=== PATIENT | male | born 1975 | race Caucasian/White ===

== ENCOUNTER → 2021-03-07 13:43 | Outpatient (CLI) | payer BC, SELFPAY ==
--- NOTE | ~2021-03-07 | CT_ITS ---
EXAMINATION: CT abdomen pelvis wo con DATE: 03/07/2021 14:17 INDICATION: Right lower quadrant bulge. Evaluate for hernia. TECHNIQUE: Computed tomography (CT) of the abdomen and pelvis was performed without intravenous contr ast. The dose-length product was 1135.74 mGy-cm. Automated exposure control and iterative reconstruct ion technique were employed. COMPARISON: None. FINDINGS: Heart size is normal. No significant pleural or pericardial effusion. No significant vascul ar abnormality. Nonobstructive bowel gas pattern. The liver, spleen, pancreas, adrenal glands and kid neys are unremarkable. Gallbladder is present. There is a fat-containing left inguinal hernia. No abn ormal pelvic masses or fluid collections. Normal appendix. No free air or free fluid. No lymphadenopa thy. Moderate lumbar spondylosis. No lytic or blastic lesions are identified. IMPRESSION: 1. No acute abdominal abnormality. 2: Small fat-containing left inguinal hernia. Reviewed, dictated and finalized at location A.
== END ==
DX: R10.9 Unspecified abdominal pain (principal); K40.90 Unilateral inguinal hernia, without obstruction or gangrene, not specified as recurrent; M47.816 Spondylosis without myelopathy or radiculopathy, lumbar region
CPT/HCPCS: 74176

== ENCOUNTER → 2021-06-25 00:28 | Outpatient (CLI) | payer BC, SELFPAY ==
[2021-06-25 21:27] LABS: SARS-CoV-2 RNA PCR Negative
== END ==
PROVIDERS: PCP Family Medicine; Visit Provider Surgery
DX: Z01.812 Encounter for preprocedural laboratory examination (principal); Z20.822 Contact with and (suspected) exposure to COVID-19
CPT/HCPCS: C9803; U0003; U0005

== ENCOUNTER 2021-06-29 00:25 | Day surgery (SDC) | payer BC, SELFPAY ==
[2021-06-27 13:36] VITALS: BMI 47.9
--- NOTE | 2021-06-28 17:23 | WPDANESEPP ---
Anes - Eval Pre Procedure Procedure: Operation Date: 06/29/21 07:30 Proposed Procedures p Laparoscopic Bilateral Inguinal Hernia Repair with Mesh, Davinci Assisted - Omer Smith DO Date/Time: 06/28/21 17:23 Pre Op Diagnosis: Bilateral Inguinal Hernia Patient Data Age: 46 Gender: M Height: 1.8 m Weight: 155.9 kg Allergies Allergy/AdvReac Type Severity Reaction Status Date / Time No Known Allergies Allergy Verified 06/27/21 13:13 Home Medications Medication Instructions Recorded Confirmed Type testosterone cypionate 200 mg/mL See Rx Instructions .ROUTE .COMPLEX 03/22/21 06/27/21 History intramuscular oil magnesium 30 mg tablet 30 mg PO DAILY 05/11/21 06/27/21 History multivitamin 1 tablet PO DAILY 05/11/21 06/27/21 History omega-3 fatty acids 1,000 mg 1,000 mg PO DAILY 05/11/21 06/27/21 History capsule phytonadione (vitamin K1) 100 mcg 100 mcg PO DAILY 05/11/21 06/27/21 History tablet dextroamphetamine-amphetamine 20 20 mg PO BID #60 tablet 06/14/21 06/27/21 Rx mg tablet cholecalciferol (vitamin D3) 50 mcg PO DAILY 06/27/21 06/27/21 History [Vitamin D3] Patient hx anesthesia problems: none Family hx anesthesia problems: none [facility] Past Medical History Medical History (Updated 06/28/21 @ 17:00 by Gopi Robledo DO) ADHD, predominantly inattentive type Anxiety PONV (postoperative nausea and vomiting) Surgical History Surgical History H/O oral surgery H/O wrist surgery Family History Family History Father Cerebrovascular accident Hypertension Unknown Diabetes mellitus Cancer Social History Social History Social History: Caffeine use: coffee daily & Monster drink mixed with water Smoking status: Never smoker Alcohol intake: current Drinks per week: 8 Alcohol use details: mostly weekends Substance use: current Substance use type: marijuana Other substance usage details: eatables 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
[2021-06-29] VITALS (10 sets, daily range): BP systolic 127–149; BP diastolic 79–103; PULSE 60–94; RESP 14–20; TEMP 36.6; O2SAT 96–100
[2021-06-29] MEDS: LACTATED RINGERS 1,000 ML 30 ML IV CONT (06:56)
[2021-06-29] MEDS: ACETAMINOPHEN 500 MG TABLET 1000 MG PO (06:57)
[2021-06-29] MEDS: KETOROLAC 15 MG/ML VIAL (*BKC) IV PUSH (06:58)
--- NOTE | 2021-06-29 07:02 | WPDANESEFPP ---
Anes - Eval Final PreProcedure Day of Procedure 06/29/21 07:02 Patient weight: morbidly obese Heart: regular rate and rhythm Lungs: clear to auscultation Airway: Mallampati scale class II Neurological: alert and oriented Last oral intake: >/= 8 hours ASA classification: III Emergent: no Anesthetic plan: proceed Anesthesia type and monitoring: general ETT and standard monitoring Informed Consent: The patient's anesthetic plan and its attendant risks and benefits were discussed with the patient/family/POA. Questions were solicited and answers provided to the satisfaction of the patient/family/POA.
[2021-06-29] MEDS: SCOPOLAMINE 1.5 MG PATCH TRANSDERM (07:10)
--- NOTE | 2021-06-29 07:13 | WPDHPUPDATE1 ---
History and Physical Update Update Date/Time: 06/29/21 07:13 History and Physical has been reviewed, including an updated exam of the patient. There are NO changes in the patient's condition. Risks, benefits, and alternatives have been discussed and questions answered. Patient agrees to proceed with procedure.
--- NOTE | 2021-06-29 07:13 | PM.IMHP ---
H&P: HPI History of Present Illness Date/Time: 06/29/21 07:13 Chief Complaint: bilateral inguinal hernia Narrative: 46 yo man presents for bilateral inguinal hernia repair. He denies any changes since last seen in office. Review of Systems Review of Systems: All systems reviewed & are unremarkable except as noted in HPI and below Constitutional: Constitutional: Denies chills, Denies fever(s), Denies headache(s) and Denies weight loss Eyes: Eyes: Denies change in vision ENT: Denies dizziness, Denies headache(s), Denies neck mass and Denies throat swelling Cardiovascular: Cardiovascular: Denies chest pain, Denies lightheadedness and Denies dyspnea Respiratory: Respiratory: Denies cough, Denies dyspnea and Denies wheezing Gastrointestinal: Gastrointestinal: Denies abdominal pain, Denies change in bowel habits, Denies nausea and Denies vomiting Genitourinary: Genitourinary: Denies hematuria and Denies dysuria Musculoskeletal: Musculoskeletal: Reports as per HPI Integumentary/Breasts: Skin/Breast: Reports as per HPI Neurologic: Denies dizziness and Denies headache(s) Allergic/Immunologic: Allergic/Immunologic: Denies throat swelling and Denies wheezing [facility] Past Medical History Medical History (Updated 06/28/21 @ 17:00 by Gopi Robledo DO) ADHD, predominantly inattentive type Anxiety PONV (postoperative nausea and vomiting) Surgical History Surgical History H/O oral surgery H/O wrist surgery Family History Family History Father Cerebrovascular accident Hypertension Unknown Diabetes mellitus Cancer Social History Social History Social History: Caffeine use: coffee daily & Monster drink mixed with water Smoking status: Never smoker Alcohol intake: current Drinks per week: 8 Alcohol use details: mostly weekends Substance use: current Substance use type: marijuana Other substance usage details: eatables Living arrangements: with family 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[employer] Gender identity (if verbalized by the patient): Male Spiritual care concerns: No Meds Home Medications and Allergies Home Medications Medication Instructions Recorded Confirmed Type testosterone cypionate 200 mg/mL See Rx Instructions .ROUTE .COMPLEX 03/22/21 06/29/21 History intramuscular oil magnesium 30 mg tablet 30 mg PO DAILY 05/11/21 06/29/21 History multivitamin 1 tablet PO DAILY 05/11/21 06/29/21 History omega-3 fatty acids 1,000 mg 1,000 mg PO DAILY 05/11/21 06/29/21 History capsule phytonadione (vitamin K1) 100 mcg 100 mcg PO DAILY 05/11/21 06/29/21 History tablet dextroamphetamine-amphetamine 20 20 mg PO BID #60 tablet 06/14/21 06/29/21 Rx mg tablet cholecalciferol (vitamin D3) 50 mcg PO DAILY 06/27/21 06/29/21 History [Vitamin D3] Allergies Allergy/AdvReac Type Severity Reaction Status Date / Time No Known Allergies Allergy Verified 06/29/21 06:39 Vital Signs Vital Signs - 24 hr 06/29/21 06:24 Temperature 36.6 C Pulse Rate 73 Respiratory Rate 16 Blood Pressure 127/87 Pulse Oximetry 96 Exam Const: General: no acute distress and alert Orientation/consciousness: patient oriented x3 HENMT: Head: normocephalic and atraumatic Ears: hearing grossly normal bilaterally General nose exam: Normal nares present Mouth: Yes Normal oral and palatal mucosa present Eyes: Periorbital: periorbital findings normal Sclera: sclerae normal EOM: EOMs intact bilaterally Neck: Neck: normal visual inspection, no lymphadenopathy and trachea midline Chest: Chest palpation & inspection: normal inspection of the chest Resp: Effort & Inspection: normal respiratory effort Auscultation: clear to auscultation bilaterally Cardio: Jugu
[2021-06-29] MEDS: ceFAZolin 3 GM/D5W 100 ML 100 ML IVPB (07:31)
[2021-06-29] MEDS: BUPIVACAINE/EPINEPHRINE 0.5% 30 ML VIAL INFILTRATE (08:12)
--- NOTE | 2021-06-29 09:13 | W.PM.PROC2 ---
Procedure Note - Detailed Date of Procedure 06/29/21 Pre-op Diagnosis Bilateral Inguinal Hernia Post-op Diagnosis same (Left indirect inguinal hernia, right direct inguinal hernia, right cord lipoma) Procedure Performed Laparoscopic bilateral inguinal hernia repair with mesh, da Duane assisted Surgeon Omer Smith, Anesthesia general and local (0.5% bupivacaine with epinephrine) Indications This is a 46-year-old man who presented with bilateral groin pain with activity. He had a CT of his abdomen and pelvis done which showed evidence of a a left inguinal hernia but did not show a right inguinal hernia. On exam he did appear to have some weakness palpable on the right side and most of his symptoms were more on the right groin. Discussed procedure options with the patient and decision was made to proceed with laparoscopic bilateral inguinal hernia repair with mesh, de Duane assisted. Findings Laparoscopic bilateral inguinal hernia repair was performed. A robotic transabdominal preperitoneal approach was utilized. On the left side, patient was found to have an indirect inguinal hernia. This was small and did not appear to be containing any bowel. On the right side, patient had a small direct defect. As the preperitoneal plane was created and the hernia sac was reduced, it was also noted that he had a fairly significant cord lipoma going up into the inguinal canal on the right side. This was reduced along with the peritoneum. A ProGrip 10 cm x 15 cm mesh was placed on each side. No specimens were obtained for pathology. Description of Procedure Procedure as well as risks, benefits, and alternatives were discussed with the patient. Written consent was obtained and placed in chart prior to procedure. Patient was brought back to surgical suite. He was placed supine on operating table. Time-out was done to confirm patient and procedure. He was then intubated by Anesthesia Department. His abdomen was prepped and draped in sterile fashion using chlorhexidine prep. 0.5% bupivacaine with epinephrine was infiltrated at each location for incision. An 8 mm incision was made in the left lateral abdomen, and a 5 mm Optiview trocar was advanced through the abdominal layers under direct visualization. Once inside the abdominal cavity, carbon dioxide insufflation was used to create a pneumoperitoneum. A camera was inserted and the abdominal cavity was inspected. The patient was placed in slight Trendelenburg position. An 8 millimeter incision was made on the right lateral abdomen and an 8 millimeter trocar was inserted under direct visualization. Another 8 millimeter incision was made just superior to the umbilicus and an 8 millimeter trocar was inserted under direct visualization. The 5 mm port was then removed and this was replaced with another 8 mm robotic port. The robotic arms were brought up to the patient's bedside and secured to the ports. The camera and instruments were inserted. I then moved over to the robotic console and took control of the camera and instruments. After careful inspection of the abdominal cavity, I began scoring the peritoneum along the left lower quadrant using scissors with electrocautery. The preperitoneal plane was entered and this was carefully dissected caudally along the inferior epigastric vessels. Careful dissection with scissors with electrocautery and blunt dissection was used to continue this dissection. I dissected far enough laterally to allow for mesh placement, and also dissected medially to identify the pubic arch and Steve's ligament. The hernia sac was identified and carefully dissected posteriorly. The cord contents were also identified and the peritoneum was carefully dissected far enough posteriorly to allow for mesh placement. Once an adequate pocket was created, I then placed the mesh within the preperitoneal pocket and carefully unfolded it. The mesh was centered on the hernia defect with adequate ov
--- NOTE | 2021-06-29 10:19 | SUR.PHASEII ---
Dr. Smith aware that scrotal support is too small for patient. Dr. Smith said for patient to wear a good supportive pair of underwear for 2 days post-up.
== END 2021-06-29 11:44 | disposition home or self-care (01) ==
PROVIDERS: PCP Family Medicine; Visit Provider Surgery
PROC: 8E0Y4CZ Robotic Assisted Procedure of Lower Extremity, Percutaneous Endoscopic Approach (ICD-10-PCS; CPT 49650; principal; 2021-06-29 07:30)
DX: K40.20 Bilateral inguinal hernia, without obstruction or gangrene, not specified as recurrent (principal); D17.6 Benign lipomatous neoplasm of spermatic cord; F90.9 Attention-deficit hyperactivity disorder, unspecified type; F41.9 Anxiety disorder, unspecified; F12.90 Cannabis use, unspecified, uncomplicated
CPT/HCPCS: 49650; S2900; 36415; 86850; 86900; 86901; A9270; C1781; J0690; J1885; J2250; J3010; J7030; J7120

== ENCOUNTER → 2022-02-13 15:00 | Outpatient (CLI) | payer BC, SELFPAY ==
--- NOTE | ~2022-02-13 | XR_ITS ---
XR wrist LT min 3V DATE: 02/13/2022 15:24 INDICATION: Left wrist pain TECHNIQUE: 4 views COMPARISON: 04/16/2004 left wrist FINDINGS: There is old healed fracture deformity of the distal radius with dorsal inclination of dist al radial articular surface. There is ununited fracture of the ulnar styloid process tip. No recent fracture or dislocation, periosteal reaction or bone destruction. IMPRESSION: Old fracture deformities of distal radius and ulnar styloid process Reviewed, dictated and finalized at location A.
== END ==
PROVIDERS: Visit Provider Physician Assistant
DX: M25.532 Pain in left wrist (principal)
CPT/HCPCS: 73110

== ENCOUNTER → 2022-02-22 11:20 | Outpatient (CLI) | payer BC, SELFPAY ==
--- NOTE | ~2022-02-22 | CT_ITS ---
EXAMINATION: CT pelvis wo con DATE: 02/22/2022 11:42 INDICATION: Left lower quadrant abdominal pain. TECHNIQUE: Computed tomography (CT) of the pelvis was performed without intravenous contrast. Automat ed exposure control and iterative reconstruction technique were employed. The dose-length product was 812.60 mGy-cm. COMPARISON: 03/07/2021 FINDINGS: There is mild sigmoid diverticulosis without adjacent inflammatory change to suggest diverticulitis. The appendix and visualized portion of the small bowel are normal. Bladder is normal. There is horizo ntal band of soft tissue density extending from left to right across the anterior lower pelvis likely related to reported prior bilateral inguinal hernia mesh repair. No interval change in the size of a fat-containing left inguinal hernia the fat extending caudally to the base of the left hemiscrotum. Bladder and prostate are unremarkable. No pathologically enlarged pelvic or inguinal lymphadenopathy. No free fluid in the pelvis. Severe lower lumbar spondylosis. IMPRESSION: 1. Postoperative changes consistent with history of prior bilateral inguinal hernia mesh repair with unchanged small to moderate fat-containing left inguinal hernia. It is unclear whether this was reduc ed prior to repair and now recurrent or whether this represents the previously herniated fat left in situ prior to the repair. 2. Mild sigmoid diverticulosis. Reviewed, dictated and finalized at location B. IMPRESSION: 1. Postoperative changes consistent with history of prior bilateral inguinal he rnia mesh repair with unchanged small to moderate fat-containing left inguinal hernia. It is unclear whether this was reduced prior to repair and now recurren t or whether this represents the previously herniated fat left in situ prior to the repair. 2. Mild sigmoid diverticulosis.
== END ==
PROVIDERS: PCP Family Medicine; Visit Provider Surgery
DX: R10.32 Left lower quadrant pain (principal); K40.90 Unilateral inguinal hernia, without obstruction or gangrene, not specified as recurrent; M47.816 Spondylosis without myelopathy or radiculopathy, lumbar region; K57.30 Diverticulosis of large intestine without perforation or abscess without bleeding
CPT/HCPCS: 72192